=== PATIENT | male | born 1960 | race Caucasian/White ===

== ENCOUNTER 2020-05-28 18:41 | Emergency (ER) | payer BC ==
[~2020-05-28] VITALS: Ht 167.6 cm; Wt 86.2 kg
[2020-05-28] MEDS ORDERED: FAMOTIDINE 20 MG/2 ML VIAL IV STA (19:08)
[2020-05-28] MEDS ORDERED: DIPHENHYDRAMINE HCL INJ 50 MG/ML VIAL IV ONE (19:15)
[2020-05-28] MEDS ORDERED: METHYLPREDNISOLONE SOD SUCC 125 MG/2ML VIAL IV ONE (19:15)
[2020-05-28] MEDS ORDERED: DIPHENHYDRAMINE HCL INJ 50 MG/ML VIAL ONE (19:37)
[2020-05-28] MEDS ORDERED: METHYLPREDNISOLONE SOD SUCC 125 MG/2ML VIAL ONE (19:37)
[2020-05-28] MEDS ORDERED: FAMOTIDINE 20 MG/2 ML VIAL IV ONE (19:37)
[2020-05-28 20:33] VITALS: BP 162/62
--- NOTE | 2020-05-28 20:46 | Emergency Department Note ---
History of Present Illnes History of Present Illness Chief Complaint: General Medicine Complaints History of Present Illness This is a 60 year old male who presents with upper and lower lip swelling since 299. No rash, itching. No tongue or throat swelling. No SOB. Similar symptoms in past - about twice a year. Not seasonal. No previously identified source. Not on MADY or other HTN med. Has seen matting press tender and had negative blood allergy test, but did not have a skin test. Current episode patient thinks is related to [place] that he had for dinner last night. Only uses surgical masks for COVID precautions, but has had episodes prior to COVID. Historian: Patient, Family Member Arrival Mode: Car Purchasing Internship Required: No Onset (how long ago): hour(s) (299) Location: upper and lower lip Quality: swelling, no pain Radiation: Reports non-radiation Severity: severe Onset quality: sudden Duration (how long): hour(s) (299) Progression: unchanged Chronicity: recurrent Context: Denies recent illness, Denies trauma/injury Associated symptoms: Denies fever/chills, Denies shortness of breath Treatments prior to arrival: other (Took PO benadryl around 299) Past Medical/Family History Physician Review I have reviewed the patient's past medical and family history. Any updates have been documented here. Past Medical History Recent Fever: No Clinical Suspicion of Infectio: No New/Unexplained Change in Ment: No Past Medical History: None Social History Smoking Cessation: Never Smoker Review of Systems Review of Systems Constitutional: Denies chills, Denies fever EENTM: Denies nose congestion, Denies throat pain Cardiovascular: Denies chest pain Respiratory: Denies cough, Denies dyspnea Gastrointestinal: Denies nausea, Denies vomiting Genitourinary: Denies dysuria Integumentary: Denies rash Neurological: Denies headache Psychological: Reports anxiety Endocrine: Reports increased thirst Hematological/Lymphatic: Denies easy bleeding Physical Exam Related Data Allergies: Coded Allergies: trimethobenzamide (Verified Allergy, Unknown, 05/28/20) Physical Exam CONSTITUTIONAL Constitutional: Present well-developed, Present well-nourished, Present other (no stritor, completes full sentences.) HENT HENT: Present normocephalic, Present atraumatic, Present mucosae dry, Present nose normal, Present other (Angioedema of upper and lower lip. No swelling of tongue or throat.) HENT L/R: Present left ext ear normal, Present right ext ear normal EYES Eyes: Reports PERRL, Reports conjunctivae normal NECK Neck: Present ROM normal PULMONARY Pulmonary: Present effort normal, Present breath sounds normal; Absent respiratory distress CARDIOVASCULAR Cardiovascular: Present regular rhythm, Present heart sounds normal, Present capillary refill normal, Present normal rate GASTROINTESTINAL Abdominal: Present soft, Present nontender, Present bowel sounds normal GENITOURINARY SKIN Skin: Present warm, Present dry MUSCULOSKELETAL Musculoskeletal: Present ROM normal NEUROLOGICAL Neurological: Present alert, Present oriented x 3, Present no gross motor or sensory deficits PSYCHOLOGICAL Psychological: Present judgement normal, Present other (anxious) Assessment & Plan Medical Decision Making MDM Patient with angioedema on exam limited to lips. No respiratory or airway involvement. Treated with benadyl, pepcid, steroids and improved. Observed and had no airway involvement. Do not suspect mask as cause because had prior episodes before COVID pandemic. Gave strict return precautions and patient to follow up with matting press tender. Computer RX not working - D/C'ed with written RX for prednisone 60mg QD X 5d with instructions for OTC benadryl and pepcid. Reassessment Reassessment time: 20:41 Reassessment Improved after benadyl, pepcid, solumedrol Assessment & Plan Final Impression: (1) Angio-edema Depart Disposition: HOME, SELF-CARE Last Vital Signs 165/97, 89 Medications in the ED Diphenhydramine HCl 50 mg NOW ONCE IV Last administered on 05/28/20at 19:42; Admin Dose 50 MG; Start 05/28/20 at 19:15; Stop 05/28/20 at 19:26; Status DC Famotidine 20 mg NOW STAT IV Last administered on 05/28/20at 19:39; Admin Dose 20 MG; Start 05/28/20 at 19:08; Stop 05/28/20 at 19:25; Status DC Methylprednisolone Sodium Succinate 125 mg ONCE ONCE IV Last administered on 05/28/20at 19:37; Admin Dose 125 MG; Start 05/28/20 at 19:15; Stop 05/28/20 at 19:16; Status DC Diphenhydramine HCl 50 mg STK-MED ONCE .ROUTE ; Start 05/28/20 at 19:37; Stop 05/28/20 at 19:33; Status DC Methylprednisolone Sodium Succinate 125 mg STK-MED ONCE .ROUTE ; Start 05/28/20 at 19:37; Stop 05/28/20 at 19:33; Status DC Famotidine 20 mg STK-MED ONCE IV ; Start 05/28/20 at 19:37; Stop 05/28/20 at 19:33; Status DC LAMONT HARPER MD May 28, 2020 20:07
== END 2020-05-28 20:35 | disposition home or self-care (01) ==
LOC: FSED 18:49
DX: T78.3XXA Angioneurotic edema, initial encounter (principal)
CPT/HCPCS: 99283; J1200; J2930